=== PATIENT | female | born 1965 | race Two or more races ===

== ENCOUNTER 2019-08-01 11:15 | Inpatient (IN) | payer OTHER ==
[~2019-08-01] VITALS: Ht 154.9 cm; Wt 68.0 kg
== END 2019-08-12 19:40 | disposition home or self-care (01) | DRG 331 ==
LOC: O/R 08-06 07:00 → SURH 08-06 11:00 → O/R 08-06 11:00 → SURH 08-06 19:21
PROVIDERS: ADMIT Colon & Rectal Surgery
PROC: 0D1B4Z4 Bypass Ileum to Cutaneous, Percutaneous Endoscopic Approach (ICD-10-PCS; 2019-08-06)
PROC: 07TC4ZZ Resection of Pelvis Lymphatic, Percutaneous Endoscopic Approach (ICD-10-PCS; 2019-08-06)
PROC: 0DTN4ZZ Resection of Sigmoid Colon, Percutaneous Endoscopic Approach (ICD-10-PCS; principal; 2019-08-06 07:00)
DX: C20 Malignant neoplasm of rectum (principal); D50.0 Iron deficiency anemia secondary to blood loss (chronic); R73.01 Impaired fasting glucose